=== PATIENT | male | born 1990 | race American Indian/Alaskan Native ===

== ENCOUNTER 2016-10-31 21:50 | Emergency (ER) | payer OTHER ==
[2016-10-31] MEDS ORDERED: FLEXERIL PO ONE (23:52)
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
[2016-11-01 02:01] VITALS: BP 106/58
== END 2016-11-01 | disposition home or self-care (01) ==
LOC: ED 21:50
DX: M54.5 Low back pain (principal); M54.6 Pain in thoracic spine; V89.2XXA Person injured in unspecified motor-vehicle accident, traffic, initial encounter; Y92.488 Other paved roadways as the place of occurrence of the external cause; Y93.89 Activity, other specified; Y99.8 Other external cause status
CPT/HCPCS: 99282

== ENCOUNTER 2016-11-04 20:45 | Emergency (ER) | payer SELFPAY ==
[2016-11-05 02:10] VITALS: BP 126/78
--- NOTE | 2016-11-05 04:02 | XRay Report ---
FINAL REPORT PROCEDURE: XR TOE(S) 2 RT TECHNIQUE: RIGHT 1st toe radiographs, including AP, oblique and lateral views. HISTORY: Pain COMPARISON: No prior studies are available for comparison. FINDINGS: Fracture(s) and/or Dislocation(s): None. Joint space(s): Normal. Soft tissues: Normal. Bone mineralization: Normal. Foreign bodies: None. IMPRESSION: Normal Examination
[2016-11-05] MEDS ORDERED: TORADOL IM ONE (04:08)
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
== END 2016-11-05 04:52 | disposition home or self-care (01) ==
LOC: ED 20:45
DX: M79.674 Pain in right toe(s) (principal); F17.200 Nicotine dependence, unspecified, uncomplicated
CPT/HCPCS: 73660; 96372; 99283; J1885